=== PATIENT | male | born 1985 | race Caucasian/White ===

== ENCOUNTER 2017-09-17 04:44 | Observation (INO) | payer SELFPAY ==
[~2017-09-17] VITALS: Ht 180.3 cm; Wt 76.7 kg
[2017-09-17] VITALS (8 sets, daily range): BP systolic 94–119; BP diastolic 63–93
[~2017-09-17 04:44] MED LIST: CLIN-62 PO; METH4TAB PO; NAPR-684 PO; TRM50T PO
[2017-09-17] MEDS ORDERED: WATER (STERILE) FOR INJECTION 20 ML ONE (05:09)
[2017-09-17] MEDS ORDERED: LORazepam INJ 2 MG/ML (ATIVAN) VIAL ONE (05:09)
[2017-09-17] MEDS ORDERED: ZIPRASIDONE 20 MG INJ (GEODON) VIAL IM ONE ×2 (05:09→05:15)
[2017-09-17] MEDS ORDERED: NS IV 1000 ML 1,000 ML IV ONE (05:10)
[2017-09-17] MEDS ORDERED: LORazepam INJ 2 MG/ML (ATIVAN) VIAL IM ONE (05:15)
[2017-09-17 05:36] LABS: BASOPHILS % (AUTO) 0 % (0-10); EOSINOPHILS # (AUTO) 0.1 10^3/uL (0.0-0.3); EOSINOPHILS % (AUTO) 1 % (0-10); HEMATOCRIT 42 % (40-54); LYMPHOCYTES # (AUTO) 1.8 X 10^3 (1.0-4.0); LYMPHOCYTES % (AUTO) 15 % (12-44); MEAN CORPUSCULAR HEMOGLOBIN 31 PG (25-34); MEAN CORPUSCULAR HGB CONC 36 G/DL (32-36); MEAN CORPUSCULAR VOLUME 87 FL (80-99); MEAN PLATELET VOLUME 8.5 FL (7.4-10.4); MONOCYTES # (AUTO) 1.5 X 10^3 (0.0-1.0); MONOCYTES % (AUTO) 12 % (0-12); NEUTROPHILS # (AUTO) 8.5 X 10^3 (1.8-7.8); NEUTROPHILS % (AUTO) 71 % (42-75); PLATELET COUNT 339 10^3/uL (130-400); RED BLOOD COUNT 4.79 10^6/uL (4.35-5.85); WHITE BLOOD COUNT 11.9 10^3/uL (4.3-11.0)
[2017-09-17 05:58] LABS: ALANINE AMINOTRANSFERASE 26 U/L (0-55); ALBUMIN 4.1 GM/DL (3.2-4.5); ALKALINE PHOSPHATASE 114 U/L (40-136); BUN/CREATININE RATIO 12; CALCIUM 9.2 MG/DL (8.5-10.1); CARBON DIOXIDE 22 MMOL/L (21-32); CHLORIDE 103 MMOL/L (98-107); CREATINE KINASE 432 U/L (30-200); CREATININE SERUM 0.84 MG/DL (0.60-1.30); GFR ESTIMATED > 60; GLUCOSE 88 MG/DL (70-105); SODIUM 141 MMOL/L (135-145); TOTAL PROTEIN 7.6 GM/DL (6.4-8.2)
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
[2017-09-17] MEDS ORDERED: LORazepam INJ 2 MG/ML (ATIVAN) VIAL IV PRN (09:00)
[2017-09-17] MEDS ORDERED: ONDANSETRON 4 MG/2 ML (SDV) Z0FRAN IV PRN ×2 (09:00→11:30)
[2017-09-17] MEDS: NS IV 1000 ML 1,000 ML IV SCH ×2 (10:02→15:40)
--- NOTE | 2017-09-17 11:06 | History & Physical-Hospitalist ---
HPI History of Present Illness: HPI/Chief Complaint Pt is a 31yoCm who presented to the ER with complaints of right arm pain. He does not remember any details of last night/this morning so history is obtained from records. He ingested meth last night and become very paranoid and barracaded himself in his home. The police were called and he was in an altercation with them and was ultimately tased by police and arrested. He was picked up by his sister and then complained of arm pain and requested evaluation. He was brought to the ER but was behaving very erratically necessitating 4 police officers to assist due to his threatening behavior. He received Ativan and Geodon in the ER and then became very somnolent. He does not remember any of this and is very sleepy and answers very few questions. Source: patient Exam Limitations: intoxication Date Seen 09/17/17 Time Seen by Provider: 10:40 Attending Physician Colin Medina MD PCP No,Local Physician Referring Physician Date of Admission Sep 17, 2017 at 07:33 Home Medications & Allergies Home Medications Reviewed patient Home Medication Reconciliation Form Allergies Allergies Coded Allergies No Known Drug Allergies (Unverified05/03/10) Past Xvdszkm-Igycni-Xlzjyg Hx Patient Social History Alcohol Use: Regular Use Recreational Drug Use: Yes (methamphetamines) Drug of Choice: METH AND MARIJUANA Smoking Status: Current Everyday Smoker Type Used: Cigarettes 2nd Hand Smoke Exposure: No Recent Foreign Travel: No Contact w/other who traveled: No Recent Hopitalizations: No Recent Infectious Disease Expo: No Surgeries Yes (FX JAW) Respiratory No Cardiovascular No Neurological No Reproductive System Hx Reproductive Disorders: No Sexually Transmitted Disease: No Gastrointestinal No Musculoskeletal No Endocrine History of Endocrine Disorders: No HEENT History of HEENT Disorders: No Cancer No Psychosocial History of Psychiatric Problem: No Integumentary History of Skin or Integumenta: No Blood Transfusions History of Blood Disorders: No Adverse Reaction to a Blood Tr: No Family Medical History Other Significan Family Hx: Unable to obtain- does not answer Review of Systems ROS-Unable to Obtain: very limited but answered some questions- denies any pain currently Constitutional: see HPI Respiratory: No short of breath Cardiovascular: No chest pain Gastrointestinal: No nausea, No vomiting Physical Exam Physical Exam Vital Signs Vital Signs - First Documented 09/17/17 04:45 Temp 99.2 Pulse 83 Resp 20 B/P (MAP) 125/79 (94) Pulse Ox 97 O2 Delivery Room Air Capillary Refill : Less Than 3 Seconds General Appearance: Other (sleepy but arousable) Respiratory: Lungs Clear, No Accessory Muscle Use, No Respiratory Distress Cardiovascular: No Murmur, Tachycardia Gastrointestinal: Normal Bowel Sounds, Non Tender, Soft Extremity: Non Tender, No Calf Tenderness, No Pedal Edema Neurologic/Psychiatric: Alert, Other (oriented to place and person only) Skin: Tattoos/Piercings Results Results/Procedures Lab Laboratory Tests 09/17/17 05:25 Assessment/Plan Admission Diagnosis AMS Diagnosis/Problems Diagnosis/Problems (1) Altered mental status Status: Acute Assessment & Plan: Likely due to sedation given in ER Will monitor in ICU Slowing becoming more alert Qualifiers: Qualified Codes: R40.4 - Transient alteration of awareness (2) Rhabdomyolysis Status: Acute Assessment & Plan: Continue IVF Will recheck CK in AM likely due to meth use and tasing Qualifiers: Qualified Codes: T79.6XXA - Traumatic ischemia of muscle, initial encounter (3) Aggressive behavior Status: Acute Assessment & Plan: Ativan prn agitation (4) Methamphetamine abuse Status: Acute Assessment & Plan: Likely contributed to aggression COLIN MEDINA MD Sep 17, 2017 11:06
[2017-09-17] MEDS ORDERED: ACETAMINOPHEN 325 MG TABLET/CAPLET (TYLENOL) PO PRN (11:30)
[2017-09-17] MEDS ORDERED: MELATONIN 3 MG TABLET PO PRN (11:30)
[2017-09-17] MEDS ORDERED: MILK OF MAGNESIA 400 MG/5 ML 30 ML UDC PO PRN (11:30)
[2017-09-17] MEDS ORDERED: ANTACID SUSP 30 ML UDC (MYLANTA) PO PRN (11:30)
[2017-09-17] MEDS ORDERED: INFLUENZA TRIvalent 2017-2018 0.5 ML/45 MCG SYR IM ONE (11:45)
--- OUTSIDE RECORDS SUMMARY | 2017-09-19 07:55 | XMS REPORT | Continuity of Care Document ---
Demographics Preferred Language Unknown Marital Status Unknown Adventist Affiliation Unknown Race Unknown Ethnic Group Unknown Author Author [facility] Address Unknown Phone Unavailable Allergies There is no data. Medications There is no data. Problems Date Dx Coded Attending Type Code Diagnosis Diagnosed By 11/14/2010 525.9 TOOTH PAIN 11/14/2010 525.9 TOOTH PAIN 12/10/2011 682.9 CELLULITIS AND ABSCESS OF UNSPECIFIED SITES 12/10/2011 682.9 CELLULITIS AND ABSCESS OF UNSPECIFIED SITES 07/01/2012 401.1 HYPERTENSION, BENIGN ESSENTIAL 07/01/2012 401.1 HYPERTENSION, BENIGN ESSENTIAL Procedures There is no data. Results Test Result Range Complete blood count (CBC) with automated white blood cell (WBC) differential - 09/17/17 05:25 Blood leukocytes automated count (number/volume) 11.9 10*3/uL 4.3-11.0 Blood erythrocytes automated count (number/volume) 4.79 10*6/uL 4.35-5.85 Venous blood hemoglobin measurement (mass/volume) 15.0 g/dL 13.3-17.7 Blood hematocrit (volume fraction) 42 % 40-54 Automated erythrocyte mean corpuscular volume 87 [foz_us] 80-99 Automated erythrocyte mean corpuscular hemoglobin (mass per erythrocyte) 31 pg 25-34 Automated erythrocyte mean corpuscular hemoglobin concentration measurement ( mass/volume) 36 g/dL 32-36 Automated erythrocyte distribution width ratio 14.0 % 10.0-14.5 Automated blood platelet count (count/volume) 339 10*3/uL 130-400 Automated blood platelet mean volume measurement 8.5 [foz_us] 7.4-10.4 Automated blood neutrophils/100 leukocytes 71 % 42-75 Automated blood lymphocytes/100 leukocytes 15 % 12-44 Blood monocytes/100 leukocytes 12 % 0-12 Automated blood eosinophils/100 leukocytes 1 % 0-10 Automated blood basophils/100 leukocytes 0 % 0-10 Blood neutrophils automated count (number/volume) 8.5 10*3 1.8-7.8 Blood lymphocytes automated count (number/volume) 1.8 10*3 1.0-4.0 Blood monocytes automated count (number/volume) 1.5 10*3 0.0-1.0 Automated eosinophil count 0.1 10*3/uL 0.0-0.3 Automated blood basophil count (count/volume) 0.0 10*3/uL 0.0-0.1 Comprehensive metabolic panel - 09/17/17 05:25 Serum or plasma sodium measurement (moles/volume) 141 mmol/L 135-145 Serum or plasma potassium measurement (moles/volume) 4.0 mmol/L 3.6-5.0 Serum or plasma chloride measurement (moles/volume) 103 mmol/L 98-107 Carbon dioxide 22 mmol/L 21-32 Serum or plasma anion gap determination (moles/volume) 16 mmol/L 5-14 Serum or plasma urea nitrogen measurement (mass/volume) 10 mg/dL 7-18 Serum or plasma creatinine measurement (mass/volume) 0.84 mg/dL 0.60-1.30 Serum or plasma urea nitrogen/creatinine mass ratio 12 NRG Serum or plasma creatinine measurement with calculation of estimated glomerular filtration rate > NRG Serum or plasma glucose measurement (mass/volume) 88 mg/dL 70-105 Serum or plasma calcium measurement (mass/volume) 9.2 mg/dL 8.5-10.1 Serum or plasma total bilirubin measurement (mass/volume) 1.0 mg/dL 0.1-1.0 Serum or plasma alkaline phosphatase measurement (enzymatic activity/volume) 114 U/L 40-136 Serum or plasma aspartate aminotransferase measurement (enzymatic activity/ volume) 26 U/L 5-34 Serum or plasma alanine aminotransferase measurement (enzymatic activity/volume ) 26 U/L 0-55 Serum or plasma protein measurement (mass/volume) 7.6 g/dL 6.4-8.2 Serum or plasma albumin measurement (mass/volume) 4.1 g/dL 3.2-4.5 Serum or plasma creatine kinase measurement (enzymatic activity/volume) - 09/17 05:25 Serum or plasma creatine kinase measurement (enzymatic activity/volume) 432 U/L 30-200 Serum or plasma ethanol measurement (mass/volume) - 09/17/17 05:25 Serum or plasma ethanol measurement (mass/volume) < mg/dL <10 Methicillin resistant Staphylococcus aureus (MRSA) screening culture - 08:25 Methicillin resistant Staphylococcus aureus (MRSA) screening culture NEG NRG Encounters ACCT No. Visit Date/Time Discharge Status Pt. Type Provider Facility Loc./Unit Complaint [id number] 07/08/2012 08:16:00 07/08/2012 23:59:59 [facility] Outpatient [id number] 07/01/2012 14:36:00 07/01/2012 23:59:59 [facility] Outpatient [id number] 08/01/2013 11:03:00 08/01/2013 13:20:00 DIS Emergency [id number] 09/17/2017 05:42:00 Document Registration
--- OUTSIDE RECORDS SUMMARY | 2017-09-19 08:05 | XMS REPORT | Continuity of Care Document ---
Demographics Preferred Language Unknown Marital Status Unknown Worship Affiliation Unknown Race Unknown Ethnic Group Unknown Author Author [facility] Address Unknown Phone Unavailable Allergies There [...] Status Pt. Type Provider Facility Loc./Unit Complaint [id number] 07/08/2012 08:16:00 07/08/2012 23:59:59 [facility] Outpatient [id number] 07/01/2012 14:36:00 07/01/2012 23:59:59 [facility] Outpatient [id number] 08/01/2013 11:03:00 08/01/2013 13:20:00 DIS Emergency [id number] 09/17/2017 05:42:00 Document Registration
== END 2017-09-17 17:20 | disposition left against medical advice (07) ==
LOC: EDUNIT# 04:44 → ER 04:48 → UNDOADMOB 07:33 → ICU 07:33 → UNDODISOB 17:20
PROVIDERS: ADMIT Family Medicine; ATTEND Family Medicine
DX: R40.4 Transient alteration of awareness (principal); T79.6XXA Traumatic ischemia of muscle, initial encounter; F15.10 Other stimulant abuse, uncomplicated; F17.210 Nicotine dependence, cigarettes, uncomplicated
CPT/HCPCS: 36415; 80053; 80320; 82550; 85025; 87081; 96360; 96372

== ENCOUNTER 2018-07-26 06:53 | Inpatient (IN) | payer SELFPAY ==
[~2018-07-26] VITALS: Ht 180.3 cm; Wt 72.6 kg
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
[2018-07-26] MEDS ORDERED: NS IV 500 ML 500 ML IV ONE (07:34)
[2018-07-26] MEDS ORDERED: NS IV 1000 ML 1,000 ML IV SCH ×2 (07:34→11:24)
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
[2018-07-26] MEDS ORDERED: VANCOMYCIN INJECTION 1,000 MG in NS (IVPB) 250 ML IV ONE (07:45)
[2018-07-26] MEDS ORDERED: KETOROLAC 30 MG/ML VIAL IVP ONE (07:45)
[2018-07-26] MEDS ORDERED: ceFAZolin INJECTION 1,000 MG in NS (IVPB) 50 ML IV ONE (07:45)
[2018-07-26] MEDS ORDERED: THIAMINE INJECTION 100 MG, FOLIC ACID INJECTION 1 MG, VITAMIN MULTI INJECTION 10 ML, MA... IV STA ×5 (07:45)
[2018-07-26 08:07] LABS: BASOPHILS % (AUTO) 0 % (0-10); EOSINOPHILS % (AUTO) 0 % (0-10); HEMATOCRIT 40 % (40-54); LYMPHOCYTES # (AUTO) 1.5 X 10^3 (1.0-4.0); LYMPHOCYTES % (AUTO) 7 % (12-44); MEAN CORPUSCULAR HEMOGLOBIN 31 PG (25-34); MEAN CORPUSCULAR HGB CONC 35 G/DL (32-36); MEAN CORPUSCULAR VOLUME 90 FL (80-99); MEAN PLATELET VOLUME 8.4 FL (7.4-10.4); MONOCYTES # (AUTO) 2.8 X 10^3 (0.0-1.0); MONOCYTES % (AUTO) 13 % (0-12); NEUTROPHILS # (AUTO) 16.7 X 10^3 (1.8-7.8); NEUTROPHILS % (AUTO) 79 % (42-75); PLATELET COUNT 424 10^3/uL (130-400); RED BLOOD COUNT 4.49 10^6/uL (4.35-5.85); RED CELL DISTRIBUTION WIDTH 13.7 % (10.0-14.5); WHITE BLOOD COUNT 21.1 10^3/uL (4.3-11.0)
--- NOTE | 2018-07-26 08:25 | Diagnostic Imaging Report ---
INDICATION: Right hand swelling and pain. AP, oblique, and lateral views of the right hand are obtained. FINDINGS: No fracture or acute bony abnormality is seen. IMPRESSION: Negative right hand. Dictated by: Dictated on workstation # [id number]
[2018-07-26 08:26] LABS: PROTHROMBIN TIME PATIENT 13.2 SEC (12.2-14.7)
--- NOTE | 2018-07-26 08:27 | Diagnostic Imaging Report ---
INDICATION: Fever. Frontal chest obtained at 8:01 a.m. and compared to 05/03/2010. FINDINGS: Heart and mediastinal silhouette are normal in appearance. The lungs appear clear. There is no pneumothorax or pleural fluid. IMPRESSION: No acute process in the chest. Dictated by: Dictated on workstation # [id number]
[2018-07-26 08:33] LABS: ALANINE AMINOTRANSFERASE 15 U/L (0-55); ALKALINE PHOSPHATASE 86 U/L (40-136); BILIRUBIN,TOTAL 0.7 MG/DL (0.1-1.0); BUN/CREATININE RATIO 11; CALCIUM 8.6 MG/DL (8.5-10.1); CARBON DIOXIDE 24 MMOL/L (21-32); CHLORIDE 105 MMOL/L (98-107); CREATININE SERUM 0.91 MG/DL (0.60-1.30); GFR ESTIMATED > 60; GLUCOSE 99 MG/DL (70-105); POTASSIUM 3.6 MMOL/L (3.6-5.0); SODIUM 140 MMOL/L (135-145); TOTAL PROTEIN 7.2 GM/DL (6.4-8.2)
[2018-07-26 08:56] LABS: BAND NEUTROPHILS 5 %; BASOPHILS % (MANUAL) 0 %; EOSINOPHILS % (MANUAL) 0 %; LYMPHOCYTES % (MANUAL) 4 %; MONOCYTES % (MANUAL) 13 %; NEUTROPHILS % (MANUAL) 78 %; RBC MORPH NORMAL
--- OUTSIDE RECORDS SUMMARY | 2018-07-26 09:39 | XMS REPORT | Continuity of Care Document ---
Demographics Preferred Language Unknown Marital Status Unknown Christianity Affiliation Unknown Race Unknown Ethnic Group Unknown Author Author [facility] Address Unknown Phone Unavailable Allergies Active Description Code Type Severity Reaction Onset Reported/Identified Relationship to Patient Clinical Status Yes No Known Drug Allergies [id number] Drug Allergy Unknown N/A 05/03/2010 Medications There [...] Status Pt. Type Provider Facility Loc./Unit Complaint [id number] 07/08/2012 08:16:00 07/08/2012 23:59:59 C[facility] Outpatient [id number] 07/01/2012 14:36:00 07/01/2012 23:59:59 CLS Outpatient [id number] 09/28/2017 08:40:00 09/28/2017 23:59:59 [facility] Outpatient [facility] [id number] 09/17/2017 07:33:00 09/17/2017 17:20:00 DIS Inpatient LETTY CROOKS, COLIN Harris [facility] ICU METHAMPHETAMINE ABUSE,AMS ,RHABDOMYOLYSIS [id number] 08/01/2013 11:03:00 08/01/2013 13:20:00 DIS Emergency JOSE HERRING APRN [facility] ER LEFT SHOULDER INJURY/PAIN
[2018-07-26] MEDS ORDERED: KETOROLAC 30 MG/ML VIAL IV PRN (11:30)
[2018-07-26] MEDS ORDERED: HYDROcodone/APAP 5 MG/325 MG (LORTAB) TAB PO PRN (11:30)
[2018-07-26] MEDS ORDERED: NS IV 1000 ML 2,177.25 ML IV ONE (11:30)
[2018-07-26] MEDS ORDERED: ceFAZolin 2 GM/50 ML PRE-MIXED IVPB IV SCH (11:30)
[2018-07-26] MEDS ORDERED: ONDANSETRON 4 MG/2 ML (SDV) Z0FRAN IV PRN (11:30)
[2018-07-26] MEDS ORDERED: VANCOMYCIN 500 MG/NS 100 ML IV NR ×2 (11:41)
[2018-07-26 12:00] VITALS: BP 140/72
[2018-07-26] MEDS: LACTATED RINGERS 1,000 ML IV SCH ×2 (12:21→23:26)
[2018-07-26] MEDS: ACETAMINOPHEN 500 MG TAB (TYLENOL) PO PRN (12:35)
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
[2018-07-26] MEDS ORDERED: 1/2 NS IV SOLUTION 1,000 ML IV PRN (12:48)
[2018-07-26] MEDS ORDERED: SENNA W/DOCUSATE (SENOKOT S) TABLET PO PRN (13:00)
[2018-07-26] MEDS ORDERED: ANTACID SUSP 30 ML UDC (MYLANTA) PO PRN (13:00)
[2018-07-26] MEDS ORDERED: LORazepam INJ 2 MG/ML (ATIVAN) VIAL IM/IV PRN (13:00)
[2018-07-26] MEDS ORDERED: LORazepam 1 MG (ATIVAN) TAB PO PRN (13:00)
[2018-07-26] MEDS ORDERED: D5 1/2 NS 1000 ML IV SOLUTION 1,000 ML IV PRN (13:00)
[2018-07-26] MEDS ORDERED: ONDANSETRON 4 MG (ZOFRAN) ORAL DISSOLVE TAB SL PRN (13:00)
[2018-07-26] MEDS ORDERED: LORazepam INJ 2 MG/ML (ATIVAN) VIAL IV PRN (13:00)
[2018-07-26] MEDS ORDERED: FLU QUADRIvalent (5+ YOA) 2018-2019 (AFLURIA) 0.5 ML IM ONE (14:00)
--- NOTE | 2018-07-26 14:57 | Occ Therapy Progress Note ---
Therapy Progress Note Order received for OT eval and treat. Met with pt at 1410. Pt states he has been completing ADLs without assistance. Pt's right hand is swollen, but he is moving fingers to tolerance and states he fed and dressed himself prior to coming to hospital. States he has been doing everything for himself. Educated pt on role of OT. Pt states he has no needs and declined OT. Has no questions or concerns at this time. Will discontinue OT at this time. Discussed with RN 1, visit HERNANDO MCCAULEY OT Jul 26, 2018 14:57
[2018-07-26 16:00] VITALS: BP 151/81
[2018-07-26] MEDS: ceFAZolin 2 GM/50 ML PRE-MIXED IVPB IV SCH (17:16)
[2018-07-26 19:05] VITALS: BP 135/68
[2018-07-26] MEDS ORDERED: VANCOMYCIN 1 GM/NS 250 ML IVPB IV SCH ×2 (22:00)
[2018-07-27] VITALS: BP 137/84
[2018-07-27] MEDS: NOREPINEPHRINE 4 MG in NS (IVPB) 250 ML IV SCH ×2 (00:44→00:46)
[2018-07-27] MEDS: ceFAZolin 2 GM/50 ML PRE-MIXED IVPB IV SCH ×3 (01:08→18:01)
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
[2018-07-27] MEDS: ACETAMINOPHEN 500 MG TAB (TYLENOL) PO PRN (02:51)
[2018-07-27 04:00] VITALS: BP 137/76
[2018-07-27 04:26] LABS: BASOPHILS % (AUTO) 0 % (0-10); EOSINOPHILS # (AUTO) 0.1 10^3/uL (0.0-0.3); EOSINOPHILS % (AUTO) 1 % (0-10); HEMATOCRIT 37 % (40-54); HEMOGLOBIN 12.7 G/DL (13.3-17.7); LYMPHOCYTES # (AUTO) 2.6 X 10^3 (1.0-4.0); LYMPHOCYTES % (AUTO) 19 % (12-44); MEAN CORPUSCULAR HEMOGLOBIN 31 PG (25-34); MEAN CORPUSCULAR HGB CONC 34 G/DL (32-36); MEAN CORPUSCULAR VOLUME 91 FL (80-99); MEAN PLATELET VOLUME 8.8 FL (7.4-10.4); MONOCYTES % (AUTO) 14 % (0-12); NEUTROPHILS # (AUTO) 9.4 X 10^3 (1.8-7.8); NEUTROPHILS % (AUTO) 66 % (42-75); PLATELET COUNT 336 10^3/uL (130-400); RED CELL DISTRIBUTION WIDTH 13.4 % (10.0-14.5); WHITE BLOOD COUNT 14.2 10^3/uL (4.3-11.0)
[2018-07-27 04:45] LABS: BUN/CREATININE RATIO 11; CALCIUM 8.9 MG/DL (8.5-10.1); CARBON DIOXIDE 23 MMOL/L (21-32); CHLORIDE 108 MMOL/L (98-107); CREATININE SERUM 0.74 MG/DL (0.60-1.30); GFR ESTIMATED > 60; GLUCOSE 97 MG/DL (70-105); POTASSIUM 3.6 MMOL/L (3.6-5.0); SODIUM 140 MMOL/L (135-145)
[2018-07-27] MEDS: LACTATED RINGERS 1,000 ML IV SCH ×3 (06:27→20:50)
[2018-07-27] MEDS: THIAMINE 100 MG (VITAMIN B-1) TAB PO SCH (06:27)
[2018-07-27] MEDS: MULTIVIT W/MINERALS TAB (THERAGRAN M) PO SCH (06:27)
[2018-07-27 07:32] VITALS: BP 134/77
--- NOTE | 2018-07-27 07:55 | Progress Note (SOAP) ---
Subjective Date Seen by a Provider: Jul 27, 2018 Time Seen by a Provider: 07:51 Subjective/Events-last exam PAIN CONTROLLED, CURRENTLY HAS NO COMPLAINTS, HE REPORTS THE SWELLING AND PAIN IS IMPROVING Review of Systems General: No Chills, No Night Sweats, No Fatigue, No Malaise, No Appetite, No Other Focused Exam Lactate Level 07/26/18 07:51: Lactic Acid Level 1.17 Objective Exam Vital Signs Date Time Temp Pulse Resp B/P (MAP) Pulse Ox O2 Delivery O2 Flow Rate FiO2 07/27/18 07:32 97.9 76 20 134/77 (96) 97 Room Air 07/27/18 04:00 98.6 71 20 137/76 (96) 97 Room Air 07/27/18 01:00 87 07/27/18 00:00 99.7 77 20 137/84 (101) 98 Room Air 07/26/18 19:05 98.5 59 22 135/68 (90) 97 Room Air 07/26/18 19:00 80 07/26/18 16:00 98.9 91 18 151/81 (104) 98 Room Air 07/26/18 12:49 97 07/26/18 12:35 100.1 07/26/18 12:00 100.5 101 22 140/72 (94) 98 Room Air 07/26/18 11:15 98 Room Air 07/26/18 11:02 104 20 130/83 (99) 98 I & O 07/27/18 07:00 Intake Total 3065.2 ml Balance 3065.2 ml Capillary Refill : Less Than 3 Seconds General Appearance: No Apparent Distress Extremity: Normal Capillary Refill, No Pedal Edema, Other (TENDERNESS DORSAL RIGHT HAND, NO PALPABLE FLUCTUANTS OR ABSCESS FORMATION, LIMITED MOBILITY RRF SECONDARY TO SWELLING) Neurologic/Psychiatric: Alert, Oriented x3 Skin: Normal Color, Warm/Dry (OBLIQUE 1CM LACERATION CENTERED OVER RRF MCP JOINT, NO DRAINAGE OR FLUCTUANTS, OVERALL IMPROVED COMPARED TO YESTERDAY) Results Lab Laboratory Tests 07/26/18 13:00: Serum Alcohol < 10 07/27/18 04:15: White Blood Count 14.2H, Red Blood Count 4.10L, Hemoglobin 12.7L, Hematocrit 37L , Mean Corpuscular Volume 91, Mean Corpuscular Hemoglobin 31, Mean Corpuscular Hemoglobin Concent 34, Red Cell Distribution Width 13.4, Platelet Count 336, Mean Platelet Volume 8.8, Neutrophils (%) (Auto) 66, Lymphocytes (%) (Auto) 19, Monocytes (%) (Auto) 14H, Eosinophils (%) (Auto) 1, Basophils (%) (Auto) 0, Neutrophils # (Auto) 9.4H, Lymphocytes # (Auto) 2.6, Monocytes # (Auto) 2.0H, Eosinophils # (Auto) 0.1, Basophils # (Auto) 0.0, Sodium Level 140, Potassium Level 3.6, Chloride Level 108H, Carbon Dioxide Level 23, Anion Gap 9, Blood Urea Nitrogen 8, Creatinine 0.74, Estimat Glomerular Filtration Rate > 60, BUN/ Creatinine Ratio 11, Glucose Level 97, Calcium Level 8.9 Assessment/Plan Assessment/Plan Assess & Plan/Chief Complaint A: CELLULITIS RIGHT HAND P: CONTINUE IV ABX, LIKELY WILL NOT NEED I&D, MAY BE ABLE TO DISCHARGE WITH OUTPATIENT ORAL ABX THERAPY TOMORROW Clinical Quality Measures DVT/VTE Risk/Contraindication: Risk Factor Score Per Nursin RFS Level Per Nursing on Admit: 1=Low/No VTE PPX AIDA LAZARO APRN Jul 27, 2018 07:54
[2018-07-27] MEDS: FOLIC ACID 1 MG TAB PO SCH (08:35)
[2018-07-27] MEDS ORDERED: TROUGH ORDER-PHARMACY XX NR (09:00)
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
[2018-07-27 11:21] VITALS: BP 139/76
[2018-07-27 15:15] VITALS: BP 131/74
[2018-07-27 19:35] VITALS: BP 136/82
[2018-07-28] VITALS: BP 131/72
[2018-07-28] MEDS: LACTATED RINGERS 1,000 ML IV SCH ×3 (00:10→17:15)
[2018-07-28] MEDS: ACETAMINOPHEN 500 MG TAB (TYLENOL) PO PRN (00:11)
[2018-07-28] MEDS: ceFAZolin 2 GM/50 ML PRE-MIXED IVPB IV SCH ×3 (01:18→17:10)
[2018-07-28 05:43] LABS: BASOPHILS % (AUTO) 0 % (0-10); EOSINOPHILS # (AUTO) 0.3 10^3/uL (0.0-0.3); EOSINOPHILS % (AUTO) 3 % (0-10); HEMATOCRIT 39 % (40-54); HEMOGLOBIN 13.1 G/DL (13.3-17.7); LYMPHOCYTES # (AUTO) 3.1 X 10^3 (1.0-4.0); LYMPHOCYTES % (AUTO) 28 % (12-44); MEAN CORPUSCULAR HGB CONC 34 G/DL (32-36); MEAN CORPUSCULAR VOLUME 91 FL (80-99); MEAN PLATELET VOLUME 8.6 FL (7.4-10.4); MONOCYTES # (AUTO) 1.2 X 10^3 (0.0-1.0); MONOCYTES % (AUTO) 11 % (0-12); NEUTROPHILS # (AUTO) 6.2 X 10^3 (1.8-7.8); NEUTROPHILS % (AUTO) 57 % (42-75); PLATELET COUNT 415 10^3/uL (130-400); RED CELL DISTRIBUTION WIDTH 13.5 % (10.0-14.5); WHITE BLOOD COUNT 10.9 10^3/uL (4.3-11.0)
[2018-07-28 05:44] LABS: MEAN CORPUSCULAR HEMOGLOBIN 30 PG (25-34)
[2018-07-28 06:01] LABS: BUN/CREATININE RATIO 12; CALCIUM 8.7 MG/DL (8.5-10.1); CARBON DIOXIDE 22 MMOL/L (21-32); CHLORIDE 109 MMOL/L (98-107); CREATININE SERUM 0.74 MG/DL (0.60-1.30); GFR ESTIMATED > 60; GLUCOSE 98 MG/DL (70-105); POTASSIUM 3.6 MMOL/L (3.6-5.0); SODIUM 142 MMOL/L (135-145)
[2018-07-28] MEDS: THIAMINE 100 MG (VITAMIN B-1) TAB PO SCH (06:12)
[2018-07-28] MEDS: MULTIVIT W/MINERALS TAB (THERAGRAN M) PO SCH (06:12)
--- NOTE | 2018-07-28 07:03 | Progress Note (SOAP) ---
Subjective Date Seen by a Provider: Jul 28, 2018 Time Seen by a Provider: 06:59 Subjective/Events-last exam Still complains of moderate pain but was sleeping when I entered the room, verbalizes no other complaints. Focused Exam Lactate Level 07/26/18 07:51: Lactic Acid Level 1.17 Objective Exam Vital Signs Date Time Temp Pulse Resp B/P (MAP) Pulse Ox O2 Delivery O2 Flow Rate FiO2 07/28/18 01:15 99.5 07/28/18 01:00 86 07/28/18 00:41 99.5 07/28/18 00:11 99.8 07/28/18 00:00 99.8 83 20 131/72 (91) 97 Room Air 07/27/18 19:35 98.6 96 14 136/82 (100) 96 Room Air 07/27/18 19:00 85 07/27/18 15:15 97.3 83 16 131/74 (93) 97 Room Air 07/27/18 13:00 89 07/27/18 11:21 98.2 82 18 139/76 (97) 97 Room Air 07/27/18 07:32 97.9 76 20 134/77 (96) 97 Room Air 07/27/18 07:00 70 I & O 07/28/18 07:00 Intake Total 1478 ml Balance 1478 ml Capillary Refill : Less Than 3 Seconds General Appearance: No Apparent Distress Extremity: Normal Capillary Refill, No Calf Tenderness, No Pedal Edema Neurologic/Psychiatric: Alert, Oriented x3, No Motor/Sensory Deficits, Normal Mood/Affect, bight maker II-XII Norm as Tested Skin: Normal Color, Warm/Dry (swelling and erythema to right hand is moderate but improved, still has limited mobility to fingers secondary to swelling, now has a 6mm vesicle over the MCP joint of the RRF. No obvious fluctuants or abscess) Results Lab Laboratory Tests 07/27/18 09:00: Vancomycin Level Trough 6.4L 07/28/18 05:29: White Blood Count 10.9, Red Blood Count 4.30L, Hemoglobin 13.1L, Hematocrit 39L , Mean Corpuscular Volume 91, Mean Corpuscular Hemoglobin 30, Mean Corpuscular Hemoglobin Concent 34, Red Cell Distribution Width 13.5, Platelet Count 415H, Mean Platelet Volume 8.6, Neutrophils (%) (Auto) 57, Lymphocytes (%) (Auto) 28, Monocytes (%) (Auto) 11, Eosinophils (%) (Auto) 3, Basophils (%) (Auto) 0, Neutrophils # (Auto) 6.2, Lymphocytes # (Auto) 3.1, Monocytes # (Auto) 1.2H, Eosinophils # (Auto) 0.3, Basophils # (Auto) 0.0, Sodium Level 142, Potassium Level 3.6, Chloride Level 109H, Carbon Dioxide Level 22, Anion Gap 11, Blood Urea Nitrogen 9, Creatinine 0.74, Estimat Glomerular Filtration Rate > 60, BUN/ Creatinine Ratio 12, Glucose Level 98, Calcium Level 8.7 Microbiology 07/26/18 Blood Culture - Preliminary, Resulted No growth Assessment/Plan Assessment/Plan Assess & Plan/Chief Complaint A: CELLULITIS RIGHT HAND P: CONTINUE IV ABX, possibly could still need I&D if abscess formation occurs, still no fluctuance at laceration site but there is a small vesicle that will likely spontaneously rupture. Continue monitoring, likely will need to stay in patient through weekend. Clinical Quality Measures DVT/VTE Risk/Contraindication: Risk Factor Score Per Nursin RFS Level Per Nursing on Admit: 1=Low/No VTE PPX AIDA LAZARO APRN Jul 28, 2018 07:03
[2018-07-28 08:00] VITALS: BP 142/62
[2018-07-28] MEDS: FOLIC ACID 1 MG TAB PO SCH (08:18)
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
[2018-07-28] MEDS ORDERED: diphenhydrAMINE 25 MG TAB (BENADRYL) PO PRN (11:45)
[2018-07-28 12:28] VITALS: BP 137/77
[2018-07-28 16:00] VITALS: BP 136/70
[2018-07-28 19:08] VITALS: BP 138/83
[2018-07-29] VITALS: BP 138/70
[2018-07-29] MEDS: LACTATED RINGERS 1,000 ML IV SCH ×4 (00:12→21:24)
[2018-07-29] MEDS: ceFAZolin 2 GM/50 ML PRE-MIXED IVPB IV SCH ×3 (01:48→17:34)
[2018-07-29 04:18] VITALS: BP_SYST 130; BP_SYST 135; BP_DIAS 63; BP_DIAS 73
[2018-07-29] MEDS: THIAMINE 100 MG (VITAMIN B-1) TAB PO SCH (06:23)
[2018-07-29] MEDS: MULTIVIT W/MINERALS TAB (THERAGRAN M) PO SCH (06:23)
[2018-07-29 08:00] VITALS: BP 118/71
[2018-07-29] MEDS: FOLIC ACID 1 MG TAB PO SCH (08:47)
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
[2018-07-29 12:00] VITALS: BP 132/83
[2018-07-29 16:00] VITALS: BP 138/73
[2018-07-29] MEDS ORDERED: LIDOCAINE 1% INJ 20 ML 20 ML VIAL ONE (17:06)
--- NOTE | 2018-07-29 17:24 | Procedure/Intervention Note ---
Procedure Note Vital Signs Vital Signs Date Time Temp Pulse Resp B/P (MAP) Pulse Ox O2 Delivery O2 Flow Rate FiO2 07/29/18 16:00 98.4 75 18 138/73 (94) 98 Room Air Procedure Note Pre op Diagnosis: bullae formation right hand secondary to cellulitis Post op Diagnosis: bullae formation right hand secondary to cellulitis Procedure: I & D right hand Verbal consent was obtained from the patient with nursing staff as witness after informed consent was reviewed with the patient. The bullae was sterilized with betadine and chlorhexadine, then 4cc of plain 1% lidocaine was injected into the soft tissues around the planned I&D site. After the anesthetic had taken effect, a 11 blade was directed into the bullae and a 6mm stab incision was made longitudinally. Then the wound contents were expressed. The contents consisted of mostly serous fluid with cellular debris. No obvious purulent discharge was noted. A culture was obtained then a sterile dressing was applied to the wound with 4x4 and opsite. He tolerated the procedure well. AIDA LAZARO APRN Jul 29, 2018 17:24
--- NOTE | 2018-07-29 17:28 | Progress Note (SOAP) ---
Subjective Date Seen by a Provider: Jul 29, 2018 Time Seen by a Provider: 17:25 Subjective/Events-last exam Now has large area of blister formation over MCP joint of right finger. OVerall redness and swelling is markedly improved. Objective Exam Vital Signs Date Time Temp Pulse Resp B/P (MAP) Pulse Ox O2 Delivery O2 Flow Rate FiO2 07/29/18 16:00 98.4 75 18 138/73 (94) 98 Room Air 07/29/18 14:39 77 07/29/18 12:00 77.0 67 20 132/83 (99) 98 Room Air 07/29/18 08:00 98.2 67 20 118/71 (87) 98 Room Air 07/29/18 07:00 61 07/29/18 04:18 99.1 80 20 135/73 (93) 95 Room Air 07/29/18 01:00 82 07/29/18 00:00 99.4 81 18 138/70 (92) 97 Room Air 07/28/18 19:08 98.3 70 16 138/83 (101) 99 Room Air 07/28/18 19:00 75 I & O 07/29/18 07:00 Intake Total 2090 ml Balance 2090 ml Capillary Refill : Less Than 3 Seconds General Appearance: No Apparent Distress Extremity: Normal Capillary Refill, Normal Inspection, Normal Range of Motion, No Calf Tenderness Neurologic/Psychiatric: Alert, Oriented x3, No Motor/Sensory Deficits, Normal Mood/Affect, battery recharger II-XII Norm as Tested Skin: Normal Color, Warm/Dry (approximately 3cm bullae formation over MCP joint of RRF, palpable fluctuants to wound are noted. ) Results Lab Microbiology 07/26/18 Blood Culture - Preliminary, Resulted No growth Assessment/Plan Assessment/Plan Assess & Plan/Chief Complaint A: CELLULITIS RIGHT HAND with bullae formation P: CONTINUE IV ABX, I&D performed at bedside. culture obtained but I doubt anything will grow out. dressing applied, nursing staff may remove dressing tomorrow and cover with bandaid. He is overall significantly improved and he should be able to go home by Wednesday with oral antibiotics. No need to follow up with ortho. the skin over the bullae will likely slough off eventually. Clinical Quality Measures DVT/VTE Risk/Contraindication: Risk Factor Score Per Nursin RFS Level Per Nursing on Admit: 1=Low/No VTE PPX AIDA LAZARO BAG PRESSER Jul 29, 2018 17:28
[2018-07-29 20:00] VITALS: BP 138/81
[2018-07-30 00:27] VITALS: BP 144/73
[2018-07-30] MEDS: ceFAZolin 2 GM/50 ML PRE-MIXED IVPB IV SCH ×3 (00:31→16:53)
[2018-07-30 04:05] VITALS: BP 141/83
[2018-07-30] MEDS: LACTATED RINGERS 1,000 ML IV SCH (04:43)
[2018-07-30] MEDS: ACETAMINOPHEN 500 MG TAB (TYLENOL) PO PRN (06:02)
[2018-07-30] MEDS: MULTIVIT W/MINERALS TAB (THERAGRAN M) PO SCH (06:02)
[2018-07-30 08:22] VITALS: BP 138/75
[2018-07-30] MEDS: FOLIC ACID 1 MG TAB PO SCH (09:09)
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
[2018-07-30 12:00] VITALS: BP 137/73
[2018-07-30 22:19] VITALS: BP 142/82
[2018-07-31] MEDS: ceFAZolin 2 GM/50 ML PRE-MIXED IVPB IV SCH ×2 (01:08→08:15)
[2018-07-31 05:55] VITALS: BP 130/77
[2018-07-31] MEDS: MULTIVIT W/MINERALS TAB (THERAGRAN M) PO SCH (06:13)
[2018-07-31] MEDS: FOLIC ACID 1 MG TAB PO SCH (08:15)
[2018-07-31] MEDS ORDERED: CEPH500T PO (09:50)
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
== END 2018-07-31 11:00 | disposition home or self-care (01) | DRG 872 ==
LOC: EDUNIT# 06:53 → ER 06:55 → 4TH 09:35
PROVIDERS: ADMIT Family Medicine; ATTEND Orthopaedic Surgery
PROC: 0H9FXZZ Drainage of Right Hand Skin, External Approach (ICD-10-PCS; principal; 2018-07-29)
DX: A41.9 Sepsis, unspecified organism (principal); L03.113 Cellulitis of right upper limb; L02.511 Cutaneous abscess of right hand; S60.521A Blister (nonthermal) of right hand, initial encounter; S61.411A Laceration without foreign body of right hand, initial encounter; F17.210 Nicotine dependence, cigarettes, uncomplicated; F10.10 Alcohol abuse, uncomplicated; F15.10 Other stimulant abuse, uncomplicated; Y04.1XXA Assault by human bite, initial encounter
CPT/HCPCS: 36415; 71045; 73130; 80048; 80053; 80202; 80320; 83605; 85007; 85025; 85027; 85610; 85730; 87040; 87070; 87205; 96365; 96367; 96375

== ENCOUNTER 2019-07-16 10:51 | Emergency (ER) | payer SELFPAY ==
[~2019-07-16] VITALS: Ht 180 cm; Wt 72.7 kg
[~2019-07-16 10:51] MED LIST changes: +CEPH500T PO
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
[2019-07-16 12:29] LABS: BASOPHILS # (AUTO) 0.1 10^3/uL (0.0-0.1); BASOPHILS % (AUTO) 1 % (0-10); EOSINOPHILS # (AUTO) 0.1 10^3/uL (0.0-0.3); EOSINOPHILS % (AUTO) 1 % (0-10); HEMATOCRIT 48 % (40-54); HEMOGLOBIN 16.7 G/DL (13.3-17.7); LYMPHOCYTES # (AUTO) 1.7 X 10^3 (1.0-4.0); LYMPHOCYTES % (AUTO) 13 % (12-44); MEAN CORPUSCULAR HEMOGLOBIN 31 PG (25-34); MEAN CORPUSCULAR HGB CONC 35 G/DL (32-36); MEAN CORPUSCULAR VOLUME 91 FL (80-99); MEAN PLATELET VOLUME 8.4 FL (7.4-10.4); MONOCYTES # (AUTO) 1.6 X 10^3 (0.0-1.0); MONOCYTES % (AUTO) 13 % (0-12); NEUTROPHILS # (AUTO) 9.2 X 10^3 (1.8-7.8); NEUTROPHILS % (AUTO) 73 % (42-75); PLATELET COUNT 347 10^3/uL (130-400); RED CELL DISTRIBUTION WIDTH 14.3 % (10.0-14.5); WHITE BLOOD COUNT 12.7 10^3/uL (4.3-11.0)
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
--- NOTE | 2019-07-16 12:56 | NUR ---
RESTING IN BED. WARM BLANKETS GIVEN. NOTIFIED WE NEEDED A URINE SAMPLE.
[2019-07-16] MEDS ORDERED: LIDOCAINE 1% INJ 20 ML 20 ML VIAL ONE (13:34)
--- NOTE | 2019-07-16 13:35 | NUR ---
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
--- NOTE | 2019-07-16 13:51 | NUR ---
REPORTS PT HAS REFUSED THE DIGITAL BLOCK THAT WAS OFFERED.
--- NOTE | 2019-07-16 14:00 | NUR ---
PT CONTINUES TO REFUSE TO GIVE A URINE SAMPLE.
[2019-07-16] MEDS ORDERED: TRM50T PO (14:01)
[2019-07-16 14:05] VITALS: BP 124/72
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
--- OUTSIDE RECORDS SUMMARY | 2019-08-10 18:53 | XMS REPORT ---
Author Author Jona Valencia Doctor Organization [facility] Address Unknown Phone Unavailable Care Team Providers Care Kst Operator Name Role Phone Migration, Doctor Unavailable Unavailable PROBLEMS Type Condition ICD9-CM Code [id number] Code Onset Dates Condition S tatus SNOMED Code Problem Cellulitis and abscess of unspecified site 682.9 Active 729810503 Problem Essential hypertension, benign 401.1 Active [id number] ALLERGIES No Information ENCOUNTERS Encounter Location Date Diagnosis [facility] [address] [place] [id number] 57 Sep, Flank pain R10.9 [facility] [address] [facility] [id number] [address] [place] [phone] Nov, [facility] [address] [facility] [id number] [address] [place] [phone] Nov, [facility] [address] [id number] [address] [place] [phone] Jul, [facility] [address] [facility] [id number] [address] [place] [phone] Jul, [facility] [address] [facility] [id number] [address] [place] [phone] Jun, [facility] [address] [id number] [address] [place] [phone] Jun, [facility] [address] [id number] [address] [place] [phone] December, IMMUNIZATIONS No Known Immunizations SOCIAL HISTORY Never Assessed REASON FOR VISIT EMR-[facility] PLAN OF CARE VITAL SIGNS MEDICATIONS Medication Instructions Dosage Frequency Start Date End Date Duration S tatus Bactrim DS 800-160 mg 1 tablet by Oral route 2 times p er day for 10 day(s) December, Active Atenolol-Chlorthalidone 50-25 mg take 1 tablet by oral route once daily for 30 day(s) Jun, Active tramadol 50 mg take 1 tablet (50 mg ) by oral route every 6 hours as neededPRNpain Jun, Active RESULTS No Results PROCEDURES No Known procedures INSTRUCTIONS MEDICATIONS ADMINISTERED No Known Medications
--- OUTSIDE RECORDS SUMMARY | 2019-08-10 18:53 | XMS REPORT ---
Author Author Jona Valencia Doctor Organization [facility] Address Unknown Phone Unavailable Care Team Providers Care Chief Service Observer Name Role Phone Migration, Doctor Unavailable Unavailable PROBLEMS Type Condition ICD9-CM Code [id number] Code Onset Dates Condition S tatus SNOMED Code Problem Cellulitis and abscess of unspecified site 682.9 Active 549516301 Problem Essential hypertension, benign 401.1 Active 2621503 ALLERGIES No Information ENCOUNTERS Encounter Location Date Diagnosis [facility] [address] [place] [id number] 20 Sep, 2017 Flank pain R10.9 [facility] [address] [facility] [id number] [address] [place] [id number] 14 Nov, 2014 [facility] [address] [id number] [address] [place] [phone] Nov, [facility] [address] [id number] [address] [place] [id number] Jul, [facility] [address] [id number] [address] [place] [phone] Jul, [facility] [address] [id number] [address] [place] [phone] Jun, [facility] [address] [id number] [address] [place] [phone] Jun, [facility] [address] [id number] [address] [place] [id number] December, IMMUNIZATIONS No Known Immunizations SOCIAL HISTORY Never Assessed REASON FOR VISIT EMR-[facility] PLAN OF CARE VITAL SIGNS MEDICATIONS Unknown Medications RESULTS No Results PROCEDURES No Known procedures INSTRUCTIONS MEDICATIONS ADMINISTERED No Known Medications
== END 2019-07-16 14:05 | disposition home or self-care (01) ==
LOC: EDUNIT# 10:51 → ER 10:53
DX: S63.287A Dislocation of proximal interphalangeal joint of left little finger, initial encounter (principal); S00.83XA Contusion of other part of head, initial encounter; S60.222A Contusion of left hand, initial encounter; S90.31XA Contusion of right foot, initial encounter; S60.511A Abrasion of right hand, initial encounter; Y04.0XXA Assault by unarmed brawl or fight, initial encounter
CPT/HCPCS: 29130; 36415; 70450; 71046; 72125; 73630; 85025